=== PATIENT | male | born 1980 | race African-American/Black ===

== ENCOUNTER 2017-07-19 16:07 | Emergency (ER) | payer MEDICAID ==
[~2017-07-19] VITALS: Ht 170.2 cm; Wt 69.0 kg
[2017-07-19 16:34] VITALS: BP 136/96
== END 2017-07-19 21:40 | disposition left against medical advice (07) ==
LOC: ER 21:33
DX: H57.12 Ocular pain, left eye (principal); Z53.21 Procedure and treatment not carried out due to patient leaving prior to being seen by health care provider

== ENCOUNTER 2018-10-05 01:18 | Emergency (ER) | payer MEDICAID ==
[~2018-10-05] VITALS: Ht 170.2 cm; Wt 69.0 kg
[2018-10-05] MEDS ORDERED: IBUPROFEN 800MG TABLET PO ONE (02:15)
[2018-10-05 02:56] VITALS: BP 121/78
== END 2018-10-05 03:56 | disposition home or self-care (01) ==
LOC: ER 01:18
DX: K05.10 Chronic gingivitis, plaque induced (principal); F17.200 Nicotine dependence, unspecified, uncomplicated
CPT/HCPCS: 99283

== ENCOUNTER 2019-08-27 14:21 | Emergency (ER) | payer MEDICAID ==
[~2019-08-27] VITALS: Ht 170.2 cm; Wt 69.0 kg
[2019-08-27] MEDS ORDERED: TETANUS, DIPHTHERIA, PERTUSSIS VAC/PF 0.5ML (>7YR OLD) IM ONE (15:15)
[2019-08-27] MEDS ORDERED: BACITRACIN ZINC OINT UDPKT TOP ONE (15:15)
[2019-08-27 15:51] VITALS: BP 126/87
== END 2019-08-27 15:52 | disposition home or self-care (01) ==
LOC: ER 14:24
DX: S61.451A Open bite of right hand, initial encounter (principal); W50.3XXA Accidental bite by another person, initial encounter; Y93.89 Activity, other specified; Y92.89 Other specified places as the place of occurrence of the external cause; Y99.8 Other external cause status; F14.10 Cocaine abuse, uncomplicated
CPT/HCPCS: 90471; 90715; 99283; Z7610